=== PATIENT | female | born 1960 | race Caucasian/White ===

== ENCOUNTER → 2019-02-09 08:55 | Outpatient (CLI) | payer OTHER, SELFPAY ==
--- NOTE | 2019-02-09 | DI.RAD.S_ITS ---
PROCEDURE: IR PICC W FLUORO GUIDE INDICATIONS: PICC PLACEMENT COMPARISON: None. FINDINGS: PICC was placed by the intravenous therapy team from the left side. Fluoroscopic spot film demonstrates tip of PICC in the mid SVC. IMPRESSION: Tip of PICC lies within the mid SVC. Dictated by: John Suarez M.D. on 02/09/2019 at 10:48 Approved by: John Suarez M.D. on 02/09/2019 at 10:49
== END ==
PROVIDERS: PCP Internal Medicine; Visit Provider Internal Medicine
DX: Z45.2 Encounter for adjustment and management of vascular access device (principal)
CPT/HCPCS: 36573; 77001

== ENCOUNTER → 2019-03-01 11:17 | Outpatient (CLI) | payer OTHER, SELFPAY ==
--- NOTE | 2019-03-01 | DI.RAD.S_ITS ---
PROCEDURE: FL GUIDED PICC PLACEMENT INDICATIONS: Malignant neoplasm of transverse colon COMPARISON: None. FINDINGS: PICC was placed by the intravenous therapy team from the left side. Fluoroscopic spot film demonstrates tip of PICC in the distal SVC. IMPRESSION: Tip of PICC lies within the distal SVC. Dictated by: Froylan Islas M.D. on 03/01/2019 at 13:52 Approved by: Froylan Islas M.D. on 03/01/2019 at 13:53
== END ==
PROVIDERS: PCP Student in an Organized Health Care Education/Training Program; Visit Provider Internal Medicine
DX: C18.4 Malignant neoplasm of transverse colon (principal)
CPT/HCPCS: 36573